=== PATIENT | male | born 1990 | race Caucasian/White ===

== ENCOUNTER 2018-05-18 18:39 | Emergency (ER) | payer BC, OTHER ==
[2018-05-18] MEDS ORDERED: EPINEPHRINE 1MG/ML AMP ONE (18:47)
[2018-05-18] MEDS ORDERED: EPINEPHRINE 1MG/ML AMP IM ONE (18:47)
[2018-05-18] MEDS ORDERED: solu-MEDROL 125 MG IV ONE (18:47)
[2018-05-18] MEDS ORDERED: BENADRYL 50 MG/ML IM ONE (18:47)
[2018-05-18] MEDS ORDERED: Sodium Chloride 0.9% 1000 ML 1,000 ML IV STA (18:47)
--- NOTE | 2018-05-18 18:51 | ERPHSYRPT ---
- History of Present Illness Source: patient Exam Limitations: no limitations Timing/Duration: today Severity: moderate Modifying Factors: Improves With: nothing Associated Symptoms: rash, other (swelling of the lips and face), No nausea, No vomiting, No abdominal pain, No shortness of breath, No heartburn, No diaphoresis, No cough, No chills, No chest pain, No fever, No headaches, No loss of appetite, No malaise, No syncope, No seizure <WILL ALONZO - Last Filed: 05/18/18 19:23> <JOAQUIN EDOUARD - Last Filed: 05/18/18 20:24> - History of Present Illness Time Seen by Provider: 05/18/18 18:48 Physician History: This is a 27-year-old white male with 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 According to patient he was stung by 4 yellow jackets just prior to the onset of his symptoms. He denies shortness of breath. Past medical history is negative other than allergy to bee stings. Past surgical history is negative. Social history positive for alcohol use. (WILL ALONZO) Allergies/Adverse Reactions: bee pollen Allergy (Verified 05/18/18 18:46) Home Medications: No Reportable Medications [No Reported Medications] 05/18/18 [History] - Review of Systems Constitutional: No Fever, No Chills Eyes: No Symptoms Ears, Nose, & Throat: Other (swelling of the lips) Respiratory: No Cough, No Dyspnea Cardiac: No Chest Pain, No Edema, No Syncope Abdominal/Gastrointestinal: No Abdominal Pain, No Nausea, No Vomiting, No Diarrhea Genitourinary Symptoms: No Dysuria Musculoskeletal: No Back Pain, No Neck Pain Skin: Rash (erythematous diffuse rash) Neurological: No Dizziness, No Focal Weakness, No Sensory Changes Psychological: No Symptoms Endocrine: No Symptoms All Other Systems: Reviewed and Negative <WILL ALONZO - Last Filed: 05/18/18 19:23> - Past Medical History Pertinent Past Medical History: No - Past Surgical History Past Surgical History: No - Social History Drug Use: none <WILL ALONZO - Last Filed: 05/18/18 19:23> - Physical Exam General Appearance: other (well-developed well-nourshed white male swelling of the face) Eye Exam: PERRL/EOMI, eyes nml inspection Ears, Nose, Throat Exam: normal ENT inspection, TMs normal, pharynx normal, moist mucous membranes Neck Exam: normal inspection, non-tender, supple, full range of motion Respiratory Exam: normal breath sounds, lungs clear, No respiratory distress Cardiovascular Exam: regular rate/rhythm, normal heart sounds, normal peripheral pulses Gastrointestinal/Abdomen Exam: soft, normal bowel sounds, No tenderness, No mass Back Exam: normal inspection, normal range of motion, No CVA tenderness, No vertebral tenderness Extremity Exam: normal inspection, normal range of motion, pelvis stable Neurologic Exam: alert, oriented x 3, cooperative, dental office coordinator II-XII nml as tested, normal mood/affect, nml cerebellar function, nml station & gait, sensation nml, No motor deficits Skin Exam: other (erythematous rash on face and trunk) SpO2 Interpretation: normal <WILL ALONZO - Last Filed: 05/18/18 19:23> - Nursing Vital Signs Nursing Vital Signs: Initial Vital Signs Pulse Rate 89 05/18/18 18:56 Respiratory Rate 20 05/18/18 18:56 Blood Pressure 121/72 05/18/18 18:56 O2 Sat by Pulse Oximetry 98 05/18/18 18:56 Pain Scale Pain Intensity 2 - Course Nursing assessment & vital signs reviewed: Yes <WILL ALONZO - Last Filed: 05/18/18 19:23> Ordered Tests: Active Orders 24 hr Category Date Time Status EKG-ER Only STAT Care 05/18/18 18:47 Active IV Insertion STAT Care 05/18/18 18:47 Active BMP Stat Lab 05/18/18 17:15 Completed CBC W DIFF Stat Lab 05/18/18 17:15 Completed Medication Summary Discontinued Medications Generic Name Dose Route Start Last Admin Trade Name Freq PRN Reason Stop Dose Admin Diphenhydramine HCl 50 mg 05/18/18 18:47 05/18/18 19:00 Benadryl 50 Mg/Ml IM 05/18/18 18:48 50 mg STAT ONE Administration Diphenhydramine HCl Confirm 05/18/18 18:52 Benadryl 50 Mg/Ml Administered 05/18/18 18:53 Dose 50 mg .ROUTE .STK-MED ONE Epinephrine HCl 0.3 mg 05/18/18 18:47 05/18/18 19:00 Epinephrine 1mg/Ml Amp IM 05/18/18 18:48 0.3 mg STAT ONE Administration Epinephrine HCl Confirm 05/18/18 18:47 Epinephrine 1mg/Ml Amp Administered 05/18/18 18:48 Dose 1 mg .ROUTE .STK-MED ONE Famotidine 20 mg 05/18/18 20:12 05/18/18 20:20 Pepcid 20 Mg Vial IV 05/18/18 20:13 20 mg STAT ONE Administration Famotidine Confirm 05/18/18 20:16 Pepcid 20 Mg Vial Administered 05/18/18 20:17 Dose 20 mg IV .STK-MED ONE Sodium Chloride 1,000 mls @ 999 mls/hr 05/18/18 18:47 05/18/18 20:01 Sodium Chloride 0.9% 1000 Ml IV 05/18/18 19:47 Infused .Q1H1M STA Infusion Sodium Chloride Confirm 05/18/18 18:52 Sodium Chloride 0.9% 1000 Ml Administered 05/18/18 18:53 Dose 1,000 mls @ ud .ROUTE .STK-MED ONE Loratadine 10 mg 05/18/18 20:12 05/18/18 20:19 Claritin 10 Mg PO 05/18/18 20:13 10 mg STAT ONE Administration Loratadine Confirm 05/18/18 20:16 Claritin 10 Mg Administered 05/18/18 20:17 Dose 10 mg .ROUTE .STK-MED ONE Methylprednisolone Sodium Succinate 125 mg 05/18/18 18:47 05/18/18 19:01 Solu-Medrol 125 Mg IV 05/18/18 18:48 125 mg STAT ONE Administration Methylprednisolone Sodium Succinate Confirm 05/18/18 18:52 Solu-Medrol 125 Mg Administered 05/18/18 18:53 Dose 125 mg .ROUTE .STK-MED ONE Lab/Rad Data: Laboratory Result Diagrams 05/18/18 17:15 05/18/18 17:15 Laboratory Results 05/18/18 05/18/18 Range/Units 17:15 17:15 WBC 7.8 (4.0-10.5) K/mm3 RBC 4.81 (4.1-5.6) M/mm3 Hgb 15.7 (12.5-18.0) gm/dl Hct 43.6 (42-50) % MCV 90.6 (78-100) fl MCH 32.6 H (26-32) pg MCHC 36.0 (32-36) g/dl RDW 12.6 (11.5-14.0) % Plt Count 309 (150-450) K/mm3 MPV 9.5 (6-9.5) fl Gran % 38.9 (36.0-66.0) % Eos # (Auto) 0.22 (0-0.5) Absolute Lymphs (auto) 3.82 (1.0-4.6) Absolute Monos (auto) 0.69 (0.0-1.3) Lymphocytes % 49.0 H (24.0-44.0) % Monocytes % 8.8 (0.0-12.0) % Eosinophils % 2.8 (0.00-5.0) % Basophils % 0.5 (0.0-0.4) % Absolute Granulocytes 3.03 (1.4-6.9) Basophils # 0.04 (0-0.4) Sodium 142 (137-145) mmol/L Potassium 3.4 L (3.5-5.1) mmol/L Chloride 107 (98-107) mmol/L Carbon Dioxide 20 L (22-30) mmol/L Anion Gap 18.8 H (5-15) MEQ/L BUN 16 (9-20) mg/dL Creatinine 1.18 (0.66-1.25) mg/dL Estimated GFR > 60.0 ML/MIN Glucose 103 (74-106) mg/dL Calcium 9.7 (8.4-10.2) mg/dL - Progress Progress: improved <WILL ALONZO - Last Filed: 05/18/18 19:23> - Progress Progress: improved Counseled pt/family regarding: lab results, diagnosis, need for follow-up <JOAQUIN EDOUARD - Last Filed: 05/18/18 20:24> - Progress Progress Note: 05/18/18 19:21 This is a 27-year-old white male he arrives with complaint of swelling in his face, diffuse rash after being stung by yellow jackets. He is allergic to bees. Patient is given IV normal saline 1 L, Solu-Medrol 125 IV Benadryl 50 mg IM and epinephrine 0.3 mL IM. Patient is beginning to feel better. CBC BMP has been ordered EKG has been ordered. Case is being turned over to Dr. Edouard secondary to shift change. Case has been discussed with Dr. Edouard. (WILL ALONZO) 05/18/18 20:13 Pt care discussed and care accepted from Dr Alonzo sixto 19:00. (JOAQUIN EDOUARD) <WILL ALONZO - Last Filed: 05/18/18 19:23> - Departure Time of Disposition: 20:22 Departure Disposition: Home Critical Care Time: No <JOAQUIN EDOUARD - Last Filed: 05/18/18 20:24> - Departure Clinical Impression: Allergic reaction to bee sting Condition: Stable Referrals: SHAWANDA SEO [Primary Care Provider] - Additional Instructions: You had an allergic reaction to a bee sting. You were given Solu-Medrol, Benadryl, Pepcid, and fluids by IV, as well as Claritin orally in the ER. You also had mild low serum potassium. You were given potassium orally. Please follow-up with your family doctor and again caring with you during the summer months and EpiPen for future possible bee sting reactions.
[2018-05-18] MEDS ORDERED: Sodium Chloride 0.9% 1000 ML 1,000 ML ONE (18:52)
[2018-05-18] MEDS ORDERED: solu-MEDROL 125 MG ONE (18:52)
[2018-05-18] MEDS ORDERED: BENADRYL 50 MG/ML ONE (18:52)
[2018-05-18 19:19] VITALS: O2SAT 99
[2018-05-18 19:37] LABS: BASOPHIL % 0.5 % (0.0-0.4); Basophil (Absolute #) 0.04 (0-0.4); Eosinophil % 2.8 % (0.00-5.0); Eosinophil (Absolute #) 0.22 (0-0.5); Granulocyte Absolute (ANC) 3.03 (1.4-6.9); Granulocytes % 38.9 % (36.0-66.0); Hematocrit 43.6 % (42-50); Hemoglobin 15.7 gm/dl (12.5-18.0); Lymphocyte (Absolute #) 3.82 (1.0-4.6); Mean Cell Volume 90.6 fl (78-100); Mean Corpuscular Hemoglobin 32.6 pg (26-32); Mean Platelet Volume 9.5 fl (6-9.5); Monocyte (Absolute #) 0.69 (0.0-1.3); Monocytes % 8.8 % (0.0-12.0); Platelet Count 309 K/mm3 (150-450); Red Blood Count 4.81 M/mm3 (4.1-5.6); Red Cell Distribution Width 12.6 % (11.5-14.0); White Blood Count 7.8 K/mm3 (4.0-10.5)
[2018-05-18 19:55] LABS: ANION GAP 18.8 MEQ/L (5-15); BLOOD UREA NITROGEN 16 mg/dL (9-20); CHLORIDE 107 mmol/L (98-107); Calcium 9.7 mg/dL (8.4-10.2); Carbon Dioxide 20 mmol/L (22-30); Creatinine 1 1.18 mg/dL (0.66-1.25); Glucose 103 mg/dL (74-106); Potassium 3.4 mmol/L (3.5-5.1); SODIUM 142 mmol/L (137-145)
[2018-05-18] MEDS ORDERED: CLARITIN 10 MG PO ONE (20:12)
[2018-05-18] MEDS ORDERED: Pepcid 20 MG VIAL IV ONE ×2 (20:12→20:16)
[2018-05-18] MEDS ORDERED: CLARITIN 10 MG ONE (20:16)
[2018-05-18] MEDS ORDERED: Klor Con 10 MEQ PO ONE ×2 (20:21→20:27)
[2018-05-18 20:44] VITALS: BP 126/82; PULSE 88
== END 2018-05-18 20:50 | disposition home or self-care (01) ==
LOC: ED 18:39
DX: T63.441A Toxic effect of venom of bees, accidental (unintentional), initial encounter (principal)
CPT/HCPCS: 36000; 36415; 80048; 85025; 93005; 96360; 96372; 96374; 96375; 99284; J0171; J1200; J2930; A9270-GY